=== PATIENT | female | born 1945 | race Caucasian/White ===

== ENCOUNTER → 2017-11-25 12:54 | Outpatient (CLI) | payer MEDICARE, MEDICAID, SELFPAY ==
--- NOTE | 2017-11-25 12:59 | US_ITS ---
US Arterial Ankle Brachial Ind INDICATION: Leg pain, claudication, previous smoker, hypertension ORDERING PHYSICIAN: Marsha Lau DPM PATIENT AGE: 72 years TECHNIQUE: Segmental pressures obtained of both right and left leg. These are compared to brachial blood pressure to yield index at each level sampled including summary BELKIS. The data sheets from the procedure are available in PACS FINDINGS Rest study only performed today No prior studies available for comparison. Blood pressures reported are in millimeters mercury. RIGHT LEG BELKIS = 1.2. Right TBI equals 1.1 Brachial BP: 122 Thigh BP: 148 Calf BP: 149 Ankle PT: 145 Ankle DP : 148 Digit =134 LEFT LEG BELKIS = 1.2 Left TBI equals 1.2 Brachial BPD: 121 Thigh BP: 141 Calf BP: 142 Ankle PT:142 Ankle DP: 142 Digit = 146 Pulses and waveforms: Normal IMPRESSION: The ABIs as reported above are within normal limits. Waveforms and pulses are also unremarkable.
== END ==
PROVIDERS: PCP Family Medicine Geriatric Medicine; Visit Provider Podiatrist
DX: R23.9 Unspecified skin changes (principal); I73.9 Peripheral vascular disease, unspecified; I10 Essential (primary) hypertension; Z87.891 Personal history of nicotine dependence
CPT/HCPCS: 93922

== ENCOUNTER → 2023-07-25 09:07 | Outpatient (CLI) | payer MEDICARE, MEDICAID, SELFPAY ==
--- NOTE | 2023-07-25 09:16 | XR_ITS ---
FINAL REPORT CLINICAL HISTORY: foot pain FINDINGS: LEFT FOOT Three views of the left foot demonstrate no acute fracture or dislocation. There is mild medial angulation of the second digit. Mild degenerative changes are seen. Note is made of a plantar calcaneal spur. The visualized joint spaces are normally aligned. The soft tissues are unremarkable. IMPRESSION: Mild medial angulation of the second digit. No fracture identified. Reviewed, Interpreted and Dictated by Chris Rushing III, MD Transcribed by Roseanna Banuelos Authenticated and [facility]
== END ==
PROVIDERS: Visit Provider Podiatrist
DX: M79.672 Pain in left foot (principal)
CPT/HCPCS: 73630